=== PATIENT | male | born 1955 | race African-American/Black ===

== ENCOUNTER 2018-06-14 07:45 | Emergency (ER) | payer OTHER ==
[~2018-06-14] VITALS: Ht 170.2 cm; Wt 72.6 kg
[~2018-06-14 07:45] MED LIST: [UNRECOGNIZED DRUG - OTHER]
[2018-06-14 08:00] VITALS: BP 135/84
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
[2018-06-14] MEDS ORDERED: PRED20TA PO (09:32)
[2018-06-14] MEDS ORDERED: ORPH100T PO (09:32)
--- NOTE | 2018-06-14 10:20 | RAD ---
Right lower extremity venous duplex Doppler ultrasound HISTORY: Right leg pain and swelling. TECHNIQUE: Grayscale and duplex Doppler sonography were utilized. FINDINGS: No DVT by grayscale imaging with compressibility, patent color Doppler blood flow and augmentation of blood flow of the right common femoral vein, profunda femoral vein, superficial femoral vein and popliteal vein. No DVT with patent color Doppler blood flow of the peroneal and posterior tibial veins in the calf. IMPRESSION: Negative right leg for DVT. Electronically signed by: Yasmany Hollis MD (06/14/2018 10:16 AM) [facility]
== END 2018-06-14 09:40 | disposition home or self-care (01) ==
LOC: ER 07:45
DX: M79.604 Pain in right leg (principal); R60.1 Generalized edema; M79.651 Pain in right thigh; M25.561 Pain in right knee; M54.5 Low back pain
CPT/HCPCS: 93971; 99284-25